=== PATIENT | male | born 1965 | race Caucasian/White ===

== ENCOUNTER → 2022-03-29 | Day surgery (SDC) | payer BC ==
[2022-03-28 14:35] VITALS: BMI 31.6
[~2022-03-29] MED LIST: EPINEPHrine 1 MG/ML AMP ONE; Iopamidol 300 61% 50 ML VIAL FS ONE; Lidocaine 1% PF 5 ML VIAL ONE; Sodium Bicarbonate 2.5 MEQ/5 ML VIAL ONE
[2022-03-29 14:06] VITALS: BP 143/82; TEMP 98
== END ==
LOC: CSHRAD 13:21
PROVIDERS: ATTEND Family Medicine
DX: M75.22 Bicipital tendinitis, left shoulder (principal); M25.412 Effusion, left shoulder; M99.07 Segmental and somatic dysfunction of upper extremity; M54.12 Radiculopathy, cervical region; J45.909 Unspecified asthma, uncomplicated; Z79.899 Other long term (current) drug therapy; Z87.891 Personal history of nicotine dependence; Z98.1 Arthrodesis status
CPT/HCPCS: 23350; J0171; Q9967